=== PATIENT | female | born 2000 | race Two or more races ===

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

== ENCOUNTER 2022-06-03 17:31 | Emergency (ER) | payer BC ==
[~2022-06-03] VITALS: Ht 154.9 cm; Wt 71.2 kg
[2022-06-03 20:33] LABS: BILIRUBIN,URINE NEGATIVE (NEGATIVE); COLOR,URINE YELLOW (YELLOW); LEUKOCYTE ESTERASE ,URINE NEGATIVE (NEGATIVE); NITRITE, URINE NEGATIVE (NEGATIVE); PROTEIN,URINE NEGATIVE (NEGATIVE); UGLUCOSE NEGATIVE (NEGATIVE); UROBILINOGEN,URINE 0.2 EU/dL (0.2)
[2022-06-03] MEDS ORDERED: KETOROLAC TROMETHAMINE INJ 60 MG/2 ML VIAL IM ONE (21:00)
[2022-06-03] MEDS ORDERED: IBUP-1955 PO (21:08)
[2022-06-03] MEDS ORDERED: KETOROLAC TROMETHAMINE INJ 30 MG/ML VIAL ONE (21:15)
--- NOTE | 2022-06-03 21:21 | NUR ---
Patient discharged to home in stable condition. Written and verbal after care instructions given. Patient verbalizes understanding of instruction.
[2022-06-03 21:54] VITALS: BP 140/67
== END 2022-06-03 21:55 | disposition home or self-care (01) ==
LOC: ER 17:32
DX: R10.2 Pelvic and perineal pain (principal); Z79.1 Long term (current) use of non-steroidal anti-inflammatories (NSAID)
CPT/HCPCS: 99284; 76856; 96372; 84703; 81003; 87491; 87591; J1885

== ENCOUNTER 2024-08-16 06:13 | Emergency (ER) | payer BC ==
[~2024-08-16] VITALS: Ht 154.9 cm; Wt 86.2 kg
[~2024-08-16 06:13] MED LIST: IBUP-1955 PO
[2024-08-16] MEDS ORDERED: ONDANSETRON HCL/PF 4 MG/2 ML VIAL ONE (07:06)
[2024-08-16] MEDS ORDERED: KETOROLAC TROMETHAMINE 15 MG/ML VIAL ONE (07:06)
[2024-08-16] MEDS: ONDANSETRON HCL/PF 4 MG/2 ML VIAL IVP ONE (07:10)
[2024-08-16] MEDS: KETOROLAC TROMETHAMINE 15 MG/ML VIAL IV ONE (07:10)
[2024-08-16] MEDS: IV NS 0.9% 1,000 ML BAG IV ONE (07:10)
[2024-08-16 07:11] LABS: HEMOGLOBIN 13.6 g/dL (11.5-14.8); MONOCYTES # (AUTO) 0.4 K/uL (0.1-1.30)
[2024-08-16 07:29] LABS: CALCIUM, SERUM 7.9 mg/dL (8.5-10.1); CREATININE 0.9 mg/dL (0.6-1.3); POTASSIUM 3.9 mmol/L (3.5-5.1)
[2024-08-16 07:30] LABS: BASOPHILS % (AUTO) 0.2 % (0.0-2.0); EOSINOPHILS # (AUTO) 0.1 K/uL (0.0-0.7); EOSINOPHILS % (AUTO) 0.7 % (0.0-6.0); HEMATOCRIT 41 % (33-45); LYMPHOCYTES # (AUTO) 0.7 K/uL (0.8-4.8); LYMPHOCYTES % (AUTO) 9.4 % (20.0-44.0); MEAN CORPUSCULAR HEMOGLOBIN 30 PG (26.0-33.0); MEAN CORPUSCULAR HGB CONC 34 g/dl (31.0-36.0); MEAN CORPUSCULAR VOLUME 90 fL (82-100); NEUTROPHILS # (AUTO) 6.1 K/uL (1.8-8.9); NEUTROPHILS % (AUTO) 83.7 % (43.0-81.0); PLATELET COUNT (AUTO) 211 K/uL (150-450); RED BLOOD CELL COUNT(AUTO) 4.53 MIL/uL (4.0-5.2); RED CELL DISTRIBUTION WIDTH 13.3 % (11.5-15.0); WHITE BLOOD COUNT (AUTO) 7.3 K/uL (4.3-11.0)
[2024-08-16 07:35] LABS: BILIRUBIN,DIRECT 0.1 mg/dL (0.0-0.2); BILIRUBIN,TOTAL 0.5 mg/dL (0.2-1.0); TOTAL PROTEIN, SERUM 7.3 g/dL (6.4-8.2)
[2024-08-16] MEDS: MORPHINE SULFATE INJ 2 MG/ML DISP.SYRIN IV ONE (08:30)
[2024-08-16] MEDS ORDERED: MORPHINE SULFATE INJ 4 MG/ML DISP.SYRIN ONE (08:31)
[2024-08-16 09:15] VITALS: BP 115/70; TEMP 98.6; O2SAT 99
== END 2024-08-16 09:15 | disposition home or self-care (01) ==
LOC: ER 06:13
DX: K59.00 Constipation, unspecified (principal); R11.2 Nausea with vomiting, unspecified; R50.9 Fever, unspecified; R10.9 Unspecified abdominal pain
CPT/HCPCS: 99285; 74176; 96374; 96375; 96361; 85025; 80048; 83690; 80076; 84703; 36415; J2270; J2405; J7030; J1885